=== PATIENT | female | born 1985 | race Caucasian/White ===

== ENCOUNTER 2017-09-17 05:30 | Inpatient (IN) | payer MEDICAID ==
[2017-09-17] MEDS: LACTATED RINGER'S 1,000 ML IV ×4 (06:50→13:01)
[2017-09-17] MEDS ORDERED: EPHEDrine SULFATE 50 MG/5 ML SYG (07:00)
[2017-09-17 07:23] LABS: ADD MAN DIFF? NO; BASOPHILS % 0.1 % (0.0-2.0); EOSINOPHILS # 0.1 10^3/ul (0.0-0.5); HEMATOCRIT 41.3 % (37.0-47.0); HEMOGLOBIN 14.2 g/dl (12.0-16.0); LYMPHOCYTES # 1.6 10^3/ul (0.8-2.9); LYMPHOCYTES % 23.1 % (15.0-51.0); MEAN CORPUSCULAR HEMOGLOBIN 29.8 pg (29.0-33.0); MEAN CORPUSCULAR HGB CONC 34.4 g/dl (32.0-37.0); MEAN CORPUSCULAR VOLUME 86.6 fl (82.0-101.0); MEAN PLATELET VOLUME 10.4 fl (7.4-10.4); MONOCYTE # 0.5 10^3/ul (0.3-0.9); MONOCYTES % 6.7 % (0.0-11.0); NEUTROPHIL # 4.8 10^3/ul (1.6-7.5); NEUTROPHILS % 68.7 % (39.0-77.0); PLATELET COUNT 241 10^3/UL (140-415); RED BLOOD COUNT 4.77 10^6/ul (4.20-5.40); RED CELL DISTRIBUTION WIDTH 13.2 % (11.5-14.5)
[2017-09-17 07:41] LABS: PARTIAL THROMBOPLASTIN TIME 28.9 Sec (25.0-35.0); PROTIME 12.2 Sec (11.9-14.9)
[2017-09-17] MEDS ORDERED: CEFAZOLIN 2 GM/50 ML (PMX) 50 ML IV (09:00)
[2017-09-17] MEDS ORDERED: METHYLERGONOVINE 0.2 MG INJ IM ×2 (09:00→13:30)
[2017-09-17] MEDS ORDERED: OXYTOCIN 30 UNITS/LR 500 ML IV ×4 (09:00→13:30)
[2017-09-17] MEDS ORDERED: MISOPROSTOL 200 MCG TAB PR ×2 (09:00→13:30)
[2017-09-17] MEDS ORDERED: CARBOPROST 250 MCG INJ IM ×2 (09:00→13:30)
[2017-09-17] MEDS ORDERED: morphine SULFATE/PF (10 MG/10 ML) INJ (09:03)
[2017-09-17] MEDS ORDERED: BUPIVACAINE 0.75%/DEXT (SPINAL) 2 ML INJ (09:03)
[2017-09-17] MEDS: CITRIC ACID/SODIUM CITRATE 15 ML CUP PO (09:38)
[2017-09-17] MEDS: METOCLOPRAMIDE 10 MG INJ IV (09:38)
[2017-09-17] MEDS: FAMOTIDINE 20 MG INJ IV (09:38)
[2017-09-17] MEDS ORDERED: ONDANSETRON 4 MG INJ (10:41)
[2017-09-17] MEDS ORDERED: KETOROLAC 30 MG INJ (10:47)
[2017-09-17] MEDS ORDERED: FENTAnyl 50 MCG/ML VIAL (10:50)
[2017-09-17] MEDS ORDERED: PROCHLORPERAZINE 10 MG INJ IV (11:30)
[2017-09-17] MEDS ORDERED: DIPHENHYDRAMINE 50 MG INJ IV ×2 (11:30→13:00)
[2017-09-17] MEDS ORDERED: ONDANSETRON 4 MG INJ IV ×2 (11:30→13:00)
[2017-09-17] MEDS ORDERED: MEPERIDINE 25 MG INJ IV (11:30)
[2017-09-17] MEDS ORDERED: FENTAnyl 50 MCG/ML VIAL IV ×3 (11:30)
[2017-09-17] MEDS ORDERED: HYDROmorphONE 1 MG/5 ML IV SYRINGE IV ×3 (11:30)
[2017-09-17] MEDS ORDERED: NALOXONE (0.4 MG/ML) INJ IV (13:00)
[2017-09-17] MEDS ORDERED: FENTAnyl 2MCG/ML-ROPIV 0.2% 100 ML BAG EPI (13:00)
[2017-09-17] MEDS ORDERED: HYDROmorphONE 0.5 MG/0.5 ML SYG IV (13:00)
[2017-09-17] MEDS ORDERED: ZOLPIDEM 5 MG TAB PO (13:00)
[2017-09-17] MEDS ORDERED: NACL 0.9% 3 ML SYG IV (13:30)
[2017-09-17] MEDS ORDERED: NA PHOSPHATE/BIPHOS 133 ML ENEMA PR (13:30)
[2017-09-17] MEDS: HYDROmorphONE 0.5 MG/0.5 ML SYG IV (15:01)
[2017-09-17] MEDS: OXYTOCIN 30 UNITS/LR 500 ML IV (15:02)
[2017-09-17 17:22] LABS: RAPID PLASMA REAGIN NONREACTIVE (NR)
[2017-09-17] MEDS: KETOROLAC 30 MG INJ IV (19:44)
[2017-09-18] MEDS: LACTATED RINGER'S 1,000 ML IV ×4 (01:04→22:06)
[2017-09-18] MEDS: KETOROLAC 30 MG INJ IV ×2 (03:51→09:25)
[2017-09-18] MEDS: LANOLIN 7 GM TUBE TOP (06:33)
[2017-09-18] MEDS: IBUPROFEN 800 MG TAB PO ×2 (14:00→22:08)
[2017-09-18] MEDS: HYDROCODONE/APAP (5/325) TAB PO (14:31)
[2017-09-18 15:08] LABS: ADD MAN DIFF? NO
[2017-09-18 15:12] LABS: WHITE BLOOD COUNT 9.2 10^3/ul (4.8-10.8)
[2017-09-18 15:12] LABS: BASOPHILS % 0.1 % (0.0-2.0); EOSINOPHILS % 0.3 % (0.0-7.0); HEMOGLOBIN 13.1 g/dl (12.0-16.0); LYMPHOCYTES # 1.1 10^3/ul (0.8-2.9); MEAN CORPUSCULAR HEMOGLOBIN 29.5 pg (29.0-33.0); MEAN CORPUSCULAR HGB CONC 33.6 g/dl (32.0-37.0); MEAN CORPUSCULAR VOLUME 87.8 fl (82.0-101.0); MEAN PLATELET VOLUME 10.1 fl (7.4-10.4); MONOCYTE # 0.4 10^3/ul (0.3-0.9); MONOCYTES % 4.6 % (0.0-11.0); NEUTROPHIL # 7.6 10^3/ul (1.6-7.5); NEUTROPHILS % 82.6 % (39.0-77.0); PLATELET COUNT 232 10^3/UL (140-415); RED BLOOD COUNT 4.44 10^6/ul (4.20-5.40); RED CELL DISTRIBUTION WIDTH 13.5 % (11.5-14.5)
[2017-09-19] MEDS: LACTATED RINGER'S 1,000 ML IV (04:55)
[2017-09-19] MEDS: IBUPROFEN 800 MG TAB PO ×3 (06:05→21:40)
[2017-09-19] MEDS: HYDROCODONE/APAP (5/325) TAB PO (12:57)
[2017-09-20] MEDS: HYDROCODONE/APAP (5/325) TAB PO ×2 (00:25→11:24)
[2017-09-20] MEDS: IBUPROFEN 800 MG TAB PO (05:41)
[2017-09-20] MEDS: MEASLES,MUMPS,RUBELLA VACCINE INJ SC* (11:24)
[2017-09-20] MEDS: DIPHTH/TET/ACEL PERTUSS (ADULT) 0.5 ML VIAL IM* (11:24)
== END 2017-09-20 13:40 | disposition home or self-care (01) | DRG 766 ==
LOC: OBT 05:30 → L-D 05:30 → OBT 08:00 → L-D 08:00 → PP1 14:59
PROVIDERS: Obstetrics & Gynecology
PROC: 10D00Z1 Extraction of Products of Conception, Low, Open Approach (ICD-10-PCS; principal; 2017-09-17 09:30)
PROC: 0UB70ZZ Excision of Bilateral Fallopian Tubes, Open Approach (ICD-10-PCS; 2017-09-17 09:30)
DX: O34.219 Maternal care for unspecified type scar from previous cesarean delivery (principal); Z3A.37 37 weeks gestation of pregnancy; Z37.0 Single live birth; Z30.2 Encounter for sterilization
CPT/HCPCS: 36415; 85025; 85610; 85730; 86592; 86850; 86900; 86901; 88302; 96360; 99464